=== PATIENT | male | born 2005 | race Caucasian/White ===

== ENCOUNTER 2023-12-10 12:22 | Emergency (ER) | payer OTHER, SELFPAY ==
[2023-12-10 12:26] VITALS: BP 149/91
[2023-12-10 12:49] LABS: % Basophils 0.6 % (0-2); % Eosinophils 8.5 % (0-6); % Immature Granulocytes 0.2 % (0-0.5); % Monocytes 11.6 % (1.7-9.3); % Neutrophils 43.1 % (42.2-75.2); Absolute Eosinophils 0.4 10^3/uL (0-0.7); Absolute Lymphocytes 1.8 10^3/uL (1.2-3.4); Absolute Monocytes 0.6 10^3/uL (0.1-0.6); Absolute Neutrophils 2.1 10^3/uL (1.4-6.5); Hematocrit 45.5 % (39.0-52.0); Mean Corp Hgb Conc. 35.2 g/dL (33.0-37.0); Mean Corpuscular Hgb 28.9 pg (27.0-31.0); Mean Corpuscular Volume 82.1 fL (80.0-94.0); Mean Platelet Volume 9.9 fL (7.4-10.4); Nucleated Red Blood Cells % 0 % (-); Platelet Count 221 10^3/uL (130-400); Red Blood Cell Count 5.54 10^6/uL (4.70-6.10); Red Cell Dist. Width 12.2 % (11.5-14.5); White Blood Cell Count 4.9 10^3/uL (4.8-10.8)
[2023-12-10 13:13] LABS: ALT (SGPT) 39 U/L (0-50); AST (SGOT) 37 U/L (17-59); Albumin 5.1 g/dl (3.5-5.0); Alkaline Phosphatase 146 U/L (38-126); Blood Urea Nitrogen 16 mg/dl (9-20); Calcium 10.3 mg/dl (8.4-10.2); Carbon Dioxide 28 mmol/L (22-30); Chloride 102 mmol/L (98-107); Glucose 82 mg/dl (70-99); Potassium 4.3 mmol/L (3.5-5.1); Sodium 136 mmol/L (135-145); Total Bilirubin 0.6 mg/dl (0.2-1.3); Total Protein 7.8 g/dl (6.3-8.2); eGFR > 60.00
--- NOTE | 2023-12-10 15:55 | ED.GENMED ---
History of Present Illness
General
Chief Complaint: Dizziness
Time Seen by Provider: 12/10/23 15:36
Travel History
Have you had any contact with someone who has COVID-19?: No
Do you have any symptoms of coronavirus? Fever > 100 degrees, chills, cough, shortness of breath, sore throat, loss of taste or smell, muscle aches, or headache?: No
History of Present Illness
History of Present Illness:
18-year-old male presents to the emergency department with both parents for evaluation of lightheadedness, facial pressure, malaise, and 'brain fog' ongoing for the past 4 to 5 weeks. He notes his symptoms began after an upper respiratory tract
infection for which she was treated with azithromycin. He states he did feel briefly better before the current symptoms began. He has tried [id number] antihistamines without relief. Denies any vertigo, vision changes, fevers, night sweats,
or weight loss.
Past History
Past History
ED Past Medical History: None
ED Past Surgical History: Tonsilectomy
Social History
Tobacco: Non-smoker
Alcohol: None
Drug: None
Personal: Single
Living: with roommate
Employment: Student
Review of Systems
Review of Systems
Allergies reviewed?: Yes
All Other Systems: ROS reviewed and negative except as documented in HPI and ROS
Phy Exam
Physical Exam
Physical Exam:
GEN: Well appearing, NAD, WDWN
HEENT: Oral mucosa moist, no scleral icterus, no nasal congestion, TMs clear bilaterally without erythema
Cardiac: Regular rate
Lung: No respiratory distress, no tachypnea
MSK: No gross deformity or injuries
Skin: Good color, no pallor or jaundice, no rashes
Neuro: AO x3; CN II-XII grossly intact. BUE strength 5/5 in all mckeon, sensation intact and symmetric. BLE strength 5/5 in all mckeon, sensation intact and symmetric
Psych: Calm, cooperative
Course
Orders/Labs/Results
Orders:
Orders
12/10/23 12:31
Complete Blood Count/With Diff Urgent
Comprehensive Metabolic Panel Urgent
Abnormal Lab Results
12/10/23
12:31
Monocytes % 11.6 H %
(1.7-9.3)
Eosinophils % 8.5 H %
(0-6)
Calcium 10.3 H mg/dl
(8.4-10.2)
Alkaline Phosphatase 146 H U/L
(38-126)
Albumin 5.1 H g/dl
(3.5-5.0)
12/10/23 12:31
12/10/23 12:31
Vital Signs
Initial and Last Documented VS:
Initial Vital Signs
Temp Pulse Resp BP Pulse Ox
98.6 F 60 16 149/91 98
12/10/23 12:26 12/10/23 12:26 12/10/23 12:26 12/10/23 12:26 12/10/23 12:26
Last Documented Vital Signs
Temp Pulse Resp BP Pulse Ox
98.6 F 60 16 149/91 98
12/10/23 12:26 12/10/23 12:26 12/10/23 12:26 12/10/23 12:26 12/10/23 12:26
MDM/Problems Addressed
MDM/Problems Addressed:
Patient is neurologically intact. His symptoms are likely persistent sinusitis/eustachian tube dysfunction in the setting of an recent upper respiratory illness. Could also be a postviral fatigue syndrome. Given that antihistamines and
decongestants have failed we will trial him on a course of steroids, so I see no indication for antibiotics or imaging at this time
*Critical Care Note
Total Time (30-74mins, 75-104mins- exclusive of procedures): Not Applicable
ED Attending Note
-
Portions of this chart may have been created with voice recognition software.� Occasional wrong word or��sound alike� substitutions may have occurred due to the inherent limitations of voice recognition software.
Discharge Plan
Departure
Patient Disposition: Home (Routine Discharge)
Date of Disposition: 12/10/23
Time of Disposition: 15:57
Patient with high blood pressure during this ER visit?: No
Discharge Problem:
Post viral syndrome, Fullness in head
Instructions: Dizziness
Prescriptions:
New
methylprednisolone [Medrol (Femi)] 4 mg tablets,dose pack
See Rx Instructions .ROUTE .COMPLEX Qty: 21 0RF
Rx Instructions:
orally per package directions
No Action
Poly Vi Mariya
1 tab PO DAILY
ondansetron 4 MG tablet,disintegrating
4 mg PO TIDPRN PRN (Reason: nausea) Qty: 5 0RF
amoxicillin 200 MG/5 ML suspension for reconstitution
300 mg PO TID Qty: 250 0RF
Referrals:
UNKNOWN - PT DOES,NOT KNOW [Family Provider] -
Interventions
Interventions:
*Risk Screen - Suicide Last Done: 12/10/23 12:26
*General Assessment Last Done: 12/10/23 12:26
*Neglect/Abuse Screening Last Done: 12/10/23 12:26
ED- Fall Risk Assessment Last Done: 12/10/23 16:14
*ED COVID-19 Vaccine History Last Done: 12/10/23 12:26
*Nursing Disposition Last Done: 12/10/23 16:14
ED- Neurological Assessment Last Done: 12/10/23 15:05
ED- Cardiac Assessment Last Done: 12/10/23 16:14
ED Swallowing Screen Last Done: 12/10/23 15:05
Discharge Date and Time
Discharge Date/Time: 12/10/23 16:15
Print Language: EMIRATI
== END 2023-12-10 16:15 | disposition home or self-care (01) ==
LOC: EMR 12:22
PROVIDERS: Emergency Medicine; EMERGENCY PHYSICIAN Emergency Medicine
DX: B34.9 Viral infection, unspecified (principal); R42 Dizziness and giddiness; R53.81 Other malaise; Z86.19 Personal history of other infectious and parasitic diseases
CPT/HCPCS: 99283; 80053; 85025